=== PATIENT | male | born 1980 | race African-American/Black ===

== ENCOUNTER 2016-08-25 20:06 | Emergency (ER) | payer MEDICAID ==
[~2016-08-25] VITALS: Ht 182.9 cm; Wt 104.5 kg
[~2016-08-25 20:06] MED LIST: [UNRECOGNIZED DRUG - REMARK]
[2016-08-25] MEDS ORDERED: ALBUTEROL SULFATE HFA 90 MCG/PUFF 8 GM INHALER IH ONE (21:15)
[2016-08-25] MEDS ORDERED: CloNIDine HCL 0.1 MG TABLET PO ONE (21:30)
[2016-08-25 21:32] LABS: GLUCOSE,POINT OF CARE 88 MG/DL (70-110)
[2016-08-25 22:23] VITALS: BP 144/101
== END 2016-08-25 22:29 | disposition home or self-care (01) ==
LOC: EMS 20:08
DX: J45.909 Unspecified asthma, uncomplicated (principal); I10 Essential (primary) hypertension; F17.210 Nicotine dependence, cigarettes, uncomplicated; Z76.0 Encounter for issue of repeat prescription
CPT/HCPCS: 82948; 82962; 94640; 99283; 99406; J3535